=== PATIENT | male | born 1980 | race Caucasian/White ===

== ENCOUNTER 2022-11-02 08:41 | Emergency (ER) | payer MEDICAID ==
[~2022-11-02] VITALS: Ht 182.9 cm; Wt 119.0 kg
[2022-11-02 08:43] VITALS: BP 119/82
[2022-11-02] MEDS ORDERED: amox tr/potassium clavulanate 875/125mg TAB PO ONE (09:15)
[2022-11-02] MEDS ORDERED: AMOX-580 PO (09:27)
== END 2022-11-02 09:39 | disposition home or self-care (01) ==
LOC: ER 08:41
DX: K04.7 Periapical abscess without sinus (principal)
CPT/HCPCS: 93005; 99283